=== PATIENT | male | born 1975 | race Caucasian/White ===

== ENCOUNTER 2020-04-27 12:59 | Outpatient (CLI) | payer OTHER ==
--- NOTE | 2020-04-27 14:46 | RAD ---
TWO VIEWS OF THE CHEST: 04/27/20 HISTORY: Dyspnea. FINDINGS: Two views of the chest show normal sized cardiomediastinal silhouette. There is no evidence of consol idation, mass, or pleural effusion. The bones are unremarkable. IMPRESSION: No evidence of acute cardiopulmonary disease. POS: [facility]
== END 2020-04-27 13:00 | disposition home or self-care (01) ==
LOC: BICRAD 12:59
PROVIDERS: ATTEND Internal Medicine Pulmonary Disease
DX: R06.00 Dyspnea, unspecified (principal)
CPT/HCPCS: 71046

== ENCOUNTER 2020-10-04 07:31 | Outpatient (CLI) | payer OTHER ==
--- NOTE | 2020-10-04 09:07 | CT ---
CT OF THE CHEST WITH IV CONTRAST: INDICATION: A 44-year-old male with a history of an autoimmune disease and symptoms and signs of cough and shortn ess of breath. COMPARISON: None. FINDINGS: The lungs are hyperinflated with patchy areas of peripheral centrilobular and paraseptal emphysema. The interstitium appears relatively well maintained without definite acute infiltration. There is no airspace consolidation. There are some patchy areas of mild ground-glass opacity within the right m iddle lobe, right upper lobe, left upper lobe, and left lower lobe which may reflect some mosaic perf usion anomalies. The heart and great vessels appear normal. No enlarged lymph nodes are evident. T he visualized upper abdomen reveals no acute abnormality. The adrenal glands are normal-appearing. Visualized liver appears within normal limits. The visualized pancreas and spleen appear within norm al limits. There is no acute osseous abnormality demonstrated. IMPRESSION: 1. Hyperinflation of the lungs with mild scattered centrilobular and paraseptal emphysema and mosaic perfusion abnormalities is suspicious for small airways disease which can be seen with chronic obstr uctive pulmonary disease or reactive airways disease. 2. No additional acute abnormality is seen. POS: [facility]
[2020-10-04] MEDS ORDERED: Iopamidol 370 76% 100 ML VIAL ONE (12:52)
== END 2020-10-04 07:32 | disposition home or self-care (01) ==
LOC: BICCT 07:31
PROVIDERS: ATTEND Internal Medicine Pulmonary Disease
DX: J44.9 Chronic obstructive pulmonary disease, unspecified (principal); J43.2 Centrilobular emphysema; R91.8 Other nonspecific abnormal finding of lung field
CPT/HCPCS: 71260; Q9967

== ENCOUNTER 2024-01-13 16:08 | Inpatient (IN) | payer OTHER ==
[2024-01-13 17:39] LABS: #Eosinphils 0.3 thou/uL (0.0-0.7); #Monocytes 0.6 thou/uL (0.11-0.59); #Neutrophils 3.7 thou/uL (1.40-6.50); %Basophils 0.3 % (0.0-1.0); %Lymphocytes 31.4 % (21.0-51.0); %Monocytes 9.2 % (0.0-10.0); %Neutrophils 53.8 % (42.0-75.0); Hematocrit 42.3 % (42.0-52.0); Hemoglobin 13.8 g/dL (14.0-18.0); Mean Corpuscular HGB CONC 32.6 g/dL (32.0-36.0); Mean Corpuscular Hemoglobin 31.5 pg (27.0-31.0); Mean Corpuscular Volume 96.6 fl (78.0-98.0); Platelet Count 161 10x3/uL (130-400); RBC Distribution Width 12.4 % (11.5-14.5); Red Blood Cell (RBC) Count 4.38 mill/uL (4.70-6.10); White Blood Cell (WBC) Count 6.9 10x3/uL (4.8-10.8)
[2024-01-13 18:01] LABS: ALT (SGPT) 28 U/L (8-55); AST (SGOT) 24 U/L (5-34); Alkaline Phosphatase 76 U/L (40-110); Anion Gap 13 mmol/L (10-20); BUN (Urea Nitrogen) 14 mg/dL (8.9-20.6); Bilirubin, Total 0.4 mg/dL (0.2-1.2); Calc. Creatinine Clearance 0 mL/min (70-130); Calcium 9.4 mg/dL (7.8-10.44); Carbon Dioxide 25 mmol/L (22-29); Chloride 103 mmol/L (98-107); Estimated GFR 84; Globulin 2.7 g/dL (2.4-3.5); Glucose 85 mg/dL (70-105); Lipase 13 U/L (8-78); Potassium 4.1 mmol/L (3.5-5.1); Protein, Total 6.7 g/dL (6.0-8.3); Sodium 137 mmol/L (136-145); Troponin I Less than 0.010 ng/mL (< 0.028)
[2024-01-13] MEDS ORDERED: Ondansetron PF 4 MG/2 ML Vial ONE (18:32)
[2024-01-13] MEDS ORDERED: Sodium Chloride 0.9% 100 ML ONE (18:32)
[2024-01-13] MEDS ORDERED: Piperacillin/Tazobactam 4.5 GM VIAL ONE ×2 (18:32→18:33)
[2024-01-13] MEDS ORDERED: Pantoprazole 40 MG VIAL ONE (18:32)
[2024-01-13 18:42] LABS: Acetaminophen Less than 10 mcg/mL (10.0-30.0); Alcohol 142.7 mg/dL (Less than 10); Salicylate Less than 8.0 mg/dL (15.0-30.0)
[2024-01-13 18:46] LABS: Amphetamine Not Detected (NotDetected); Barbiturates Screen Not Detected (NotDetected); Benzodiazepine Screen Not Detected (NotDetected); Cocaine Metabolite Screen Not Detected (NotDetected); Methadone Not Detected (NotDetected); Methamphetamine Not Detected (NotDetected); Opiate Screen Not Detected (NotDetected); Oxycodone Screen Not Detected (NotDetected); Phencyclidine (PCP) Not Detected (NotDetected); THC/Cannabinoid Screen Detected (NotDetected); Tricyclic Screen Not Detected (NotDetected)
[2024-01-13] MEDS ORDERED: Ondansetron PF 4 MG/2 ML Vial IVP PRN (19:28)
[2024-01-13] MEDS ORDERED: Acetaminophen 325 MG TAB PO PRN (19:28)
[2024-01-13] MEDS ORDERED: Senokot S 8.6-50 MG TAB PO PRN (19:28)
[2024-01-13] MEDS ORDERED: Calcium Carbonate 500 MG ChewTAB PO PRN (19:28)
[2024-01-13] MEDS ORDERED: Electrolyte Replacement Protocol 1 EACH FS SCH (19:45)
[2024-01-13] MEDS ORDERED: Ipratropium/Albuterol 3 ML NEB NEB PRN (20:24)
[2024-01-13] MEDS: Lorazepam 1 MG TAB PO SCH (23:14)
[2024-01-13] MEDS: Thiamine HCl 200 MG/2 ML VIAL SLOW IVP SCH (23:37)
[2024-01-13] MEDS: Sodium Chloride 0.9% 1,000 ML IV SCH (23:37)
[2024-01-13] MEDS: Benzonatate 100 MG CAP PO SCH (23:38)
[2024-01-13] MEDS: clonazePAM 0.5 MG TAB PO SCH (23:38)
[2024-01-13] MEDS: traMADol HCl 50 MG TAB PO PRN (23:44)
[2024-01-13] MEDS: Piperacillin/Tazobactam 3.375 GM in Sodium Chloride 0.9% 100 ML IVPB SCH (23:54)
[2024-01-14 00:37] VITALS: BMI 36.5
[2024-01-14 05:38] LABS: #Eosinphils 0.3 thou/uL (0.0-0.7); #Monocytes 0.6 thou/uL (0.11-0.59); #Neutrophils 4.7 thou/uL (1.40-6.50); %Basophils 0.3 % (0.0-1.0); %Eosinophils 3.7 % (0.0-10.0); %Lymphocytes 24.4 % (21.0-51.0); %Monocytes 7.9 % (0.0-10.0); %Neutrophils 63.3 % (42.0-75.0); Hematocrit 42.8 % (42.0-52.0); Hemoglobin 14.1 g/dL (14.0-18.0); Mean Corpuscular HGB CONC 32.9 g/dL (32.0-36.0); Mean Corpuscular Hemoglobin 32.6 pg (27.0-31.0); Mean Corpuscular Volume 98.8 fl (78.0-98.0); Mean Platelet Volume 10.2 fL (7.4-10.4); Platelet Count 155 10x3/uL (130-400); RBC Distribution Width 12.4 % (11.5-14.5); Red Blood Cell (RBC) Count 4.33 mill/uL (4.70-6.10); White Blood Cell (WBC) Count 7.5 10x3/uL (4.8-10.8)
[2024-01-14] MEDS ORDERED: Mometasone 200 MCG/Formoterol 5 MCG 120 PUFF INHALER INH SCH ×2 (06:30→16:00)
[2024-01-14 07:06] LABS: ALT (SGPT) 28 U/L (8-55); AST (SGOT) 26 U/L (5-34); Albumin 3.8 g/dL (3.5-5.0); Alkaline Phosphatase 75 U/L (40-110); Anion Gap 18 mmol/L (10-20); BUN (Urea Nitrogen) 14 mg/dL (8.9-20.6); Bilirubin, Total 0.5 mg/dL (0.2-1.2); Calc. Creatinine Clearance 148 mL/min (70-130); Calcium 8.9 mg/dL (7.8-10.44); Carbon Dioxide 22 mmol/L (22-29); Chloride 106 mmol/L (98-107); Estimated GFR 76; Globulin 3.1 g/dL (2.4-3.5); Glucose 70 mg/dL (70-105); Potassium 4.3 mmol/L (3.5-5.1); Protein, Total 6.9 g/dL (6.0-8.3); Sodium 142 mmol/L (136-145)
[2024-01-14] MEDS ORDERED: FLU VACC QS2023-24(6MOS UP)/PF 60 MCG/0.5 ML SYRINGE IM ONE (09:00)
[2024-01-14] MEDS: Multivit, Therapeutic 1 TAB PO SCH (10:07)
[2024-01-14] MEDS: Folic Acid 1 MG TAB PO SCH (10:07)
[2024-01-14] MEDS: Pantoprazole 40 MG VIAL IVP SCH (10:08)
[2024-01-14] MEDS ORDERED: clonazePAM 1 MG TAB PO PRN (14:42)
[2024-01-14] MEDS ORDERED: guaiFENesin/Codeine 200 mg/20 mg 10 ml Cup PO PRN (14:42)
[2024-01-14] MEDS ORDERED: Ipratropium/Albuterol 3 ML NEB NEB PRN (14:44)
[2024-01-14 15:58] VITALS: BP 124/75
[2024-01-14 16:58] VITALS: TEMP 98.4
[2024-01-14] MEDS ORDERED: Mometasone 100 MCG HFA INHALER (RT USE) INH SCH (18:30)
[2024-01-14] MEDS ORDERED: Ipratropium/Albuterol 3 ML NEB NEB SCH (19:00)
[2024-01-14] MEDS ORDERED: Lorazepam 1 MG TAB PO PRN (19:31)
[2024-01-15] MEDS ORDERED: Montelukast Sodium 10 mg Tablet PO SCH (09:00)
[2024-01-15] MEDS ORDERED: Non-Formulary Item 1 EACH (Fluticasone/Umeclidin/Vilanter [Trelegy Ellipta 100-62.5-25] 1 IH SCH (09:00)
[2024-01-15] MEDS ORDERED: Lorazepam 1 MG TAB PO PRN (19:31)
[2024-01-16] MEDS ORDERED: Lorazepam 0.5 MG TAB PO PRN (19:31)
[2024-01-16] MEDS ORDERED: Thiamine 100 MG TAB PO SCH (21:00)
== END 2024-01-14 19:42 | disposition home or self-care (01) | DRG 445 ==
LOC: SUATTDRO 16:08 → ERS 16:08 → ERHOLD 19:28 → 2SW 23:05
PROVIDERS: ADMIT Internal Medicine; ATTEND Family Medicine
DX: K81.0 Acute cholecystitis (principal); J96.11 Chronic respiratory failure with hypoxia; K92.0 Hematemesis; R04.2 Hemoptysis; K64.9 Unspecified hemorrhoids; J44.9 Chronic obstructive pulmonary disease, unspecified; F39 Unspecified mood [affective] disorder; E88.01 Alpha-1-antitrypsin deficiency; I48.91 Unspecified atrial fibrillation; F10.10 Alcohol abuse, uncomplicated; F41.9 Anxiety disorder, unspecified; I10 Essential (primary) hypertension; E78.5 Hyperlipidemia, unspecified; Z79.899 Other long term (current) drug therapy; Z79.01 Long term (current) use of anticoagulants; Z71.41 Alcohol abuse counseling and surveillance of alcoholic; Z98.890 Other specified postprocedural states; Z99.81 Dependence on supplemental oxygen
CPT/HCPCS: 36415; 36416; 71045; 76705; 80053; 80306; 80307; 83605; 83690; 84484; 85025; 85379; 93005; C9113; J2405; J2543; J3411; J3490; J7050